=== PATIENT | female | born 1940 | race African-American/Black ===

== ENCOUNTER 2019-10-01 14:18 | Outpatient (CLI) | payer MEDICARE, MEDICAID | END 2019-10-01 14:19 | disposition home or self-care (01) | LOC: DTY/OP 14:18 | PROVIDERS: ATTEND Physician Assistant | DX: I25.10 Atherosclerotic heart disease of native coronary artery without angina pectoris (principal); E11.59 Type 2 diabetes mellitus with other circulatory complications; E66.01 Morbid (severe) obesity due to excess calories | CPT/HCPCS: 97802 ==

== ENCOUNTER 2019-11-13 12:55 | Outpatient (CLI) | payer MEDICARE, MEDICAID ==
--- NOTE | 2019-11-13 13:14 | RAD ---
EXAM: Chest PA and lateral: HISTORY: Flavum. Wheezing. COMPARISON: 07/19/2019 FINDINGS: Heart: Normal cardiac silhouette Aorta: Unremarkable Pulmonary vessels: Normal Costophrenic angles: Costophrenic angles are clear. Lungs: Chronic lung parenchymal changes. No consolidation or mass. Pneumothorax: No pneumothorax Osseous structures: No osseous abnormalities IMPRESSION: Chronic lung parenchymal changes.
== END 2019-11-13 12:56 | disposition home or self-care (01) ==
LOC: BICRAD 12:55
PROVIDERS: ATTEND Internal Medicine Critical Care Medicine
DX: R06.00 Dyspnea, unspecified (principal)
CPT/HCPCS: 71046

== ENCOUNTER 2020-02-22 08:08 | Outpatient (CLI) | payer MEDICARE, MEDICAID ==
--- NOTE | 2020-02-22 10:57 | CT ---
Exam: Abdomen CT without contrast Pelvic CT without contrast HISTORY: Abnormal exam. Possible right upper quadrant mass. CORRELATION: Small bowel series 02/04/2020. FINDINGS: Abdomen CT: Minimal dependent atelectatic changes. Normal heart size. There are coronary calcifications. Visualized aorta has a normal caliber. There is atherosclerosis. No periaortic fat stranding. Portal vein is patent. Gallbladder: 2.4 cm gallstone. No evidence of cholecystitis. Liver: Appropriate enhancement. Spleen: Appropriate enhancement. Adrenal glands: Appropriate enhancement. Pancreas: Appropriate assessment. Kidneys: Bilaterally no obstructive uropathy. Subcentimeter hypodensities in the left renal cortex ar e too small to characterize but is statistically favored to be cysts. No gastrohepatic, retrocrural or periportal lymphadenopathy. No mesenteric mass, lymphadenopathy, free air or free fluid. Gastric mucosa, duodenum and multiple normal caliber small bowel loops. Normal ileocecal junction. No rmal caliber appendix. Scattered diverticula. No diverticulitis. No evidence of colon obstruction. Pelvic CT: No mass, lymphadenopathy, free air or free fluid. Urinary bladder has a normal mucosal appearance. Pr esacral fat is preserved. Post hysterectomy changes. No lytic or blastic lesions in the osseous structures. IMPRESSION: 1. No acute abnormality in the abdomen and pelvis. 2. No evidence of bowel obstruction. Normal caliber appendix. 3. Diverticulosis, without evidence of diverticulitis. 4. Gallstone in the gallbladder, without evidence of cholecystitis. Transcribed Date/Time: 02/22/2020 11:32 AM
== END 2020-02-22 08:09 | disposition home or self-care (01) ==
LOC: SCSCT 08:08
PROVIDERS: ATTEND Physician Assistant
DX: R19.01 Right upper quadrant abdominal swelling, mass and lump (principal); K57.90 Diverticulosis of intestine, part unspecified, without perforation or abscess without bleeding; K80.20 Calculus of gallbladder without cholecystitis without obstruction
CPT/HCPCS: 74177; 82565

== ENCOUNTER 2020-03-12 06:45 | Outpatient (CLI) | payer MEDICARE, MEDICAID, OTHER ==
[2020-03-12 15:56] LABS: SARS-CoV-2 MS2 Positive; SARS-CoV-2 N Gene Negative; SARS-CoV-2 S Gene Negative; SARS-CoV-2 by NAA Not Detected (NotDetected); SARS-CoV-2 orf1ab Negative
== END 2020-03-12 06:46 | disposition home or self-care (01) ==
LOC: LABBT 06:45
PROVIDERS: ATTEND Physician Assistant Medical
DX: R10.9 Unspecified abdominal pain (principal); R13.10 Dysphagia, unspecified; R09.89 Other specified symptoms and signs involving the circulatory and respiratory systems; Z20.828 Contact with and (suspected) exposure to other viral communicable diseases
CPT/HCPCS: 87635; U0003

== ENCOUNTER → 2020-03-17 | Day surgery (SDC) | payer MEDICARE, MEDICAID | LOC: ENDO/OP 08:47 | PROVIDERS: ATTEND Physician Assistant Medical | DX: R13.10 Dysphagia, unspecified (principal); Z88.8 Allergy status to other drugs, medicaments and biological substances | CPT/HCPCS: 91010 ==

== ENCOUNTER 2020-11-10 12:07 | Outpatient (CLI) | payer MEDICARE, MEDICAID | END 2020-11-10 12:08 | disposition home or self-care (01) | LOC: BICRAD 12:07 | PROVIDERS: ATTEND Internal Medicine Pulmonary Disease | DX: R06.00 Dyspnea, unspecified (principal) | CPT/HCPCS: 71046 ==

== ENCOUNTER 2021-03-04 19:00 | Outpatient (CLI) | payer MEDICARE, MEDICAID | END 2021-03-04 19:01 | disposition home or self-care (01) | LOC: SLEEPLAB 19:00 | PROVIDERS: ATTEND Internal Medicine Critical Care Medicine | DX: G47.33 Obstructive sleep apnea (adult) (pediatric) (principal); R53.83 Other fatigue; E66.9 Obesity, unspecified; J44.9 Chronic obstructive pulmonary disease, unspecified; I63.9 Cerebral infarction, unspecified; R06.3 Periodic breathing; G47.31 Primary central sleep apnea | CPT/HCPCS: 95811 ==

== ENCOUNTER 2021-04-15 19:00 | Outpatient (CLI) | payer MEDICARE, MEDICAID | END 2021-04-15 19:01 | disposition home or self-care (01) | LOC: SLEEPLAB 19:00 | PROVIDERS: ATTEND Internal Medicine Pulmonary Disease | DX: G47.33 Obstructive sleep apnea (adult) (pediatric) (principal); R53.83 Other fatigue; J44.9 Chronic obstructive pulmonary disease, unspecified; I63.9 Cerebral infarction, unspecified; G47.10 Hypersomnia, unspecified; I48.91 Unspecified atrial fibrillation; E66.9 Obesity, unspecified; Z68.36 Body mass index [BMI] 36.0-36.9, adult | CPT/HCPCS: 95811 ==

== ENCOUNTER 2021-12-02 09:00 | Outpatient (CLI) | payer OTHER, MEDICAID | END 2021-12-02 09:01 | disposition home or self-care (01) | LOC: SCSMRI 09:00 | PROVIDERS: ATTEND Physician Assistant | DX: R22.42 Localized swelling, mass and lump, left lower limb (principal) ==

== ENCOUNTER 2022-09-15 09:30 | Outpatient (CLI) | payer OTHER ==
[2022-09-15 11:23] LABS: #Eosinphils 0.1 10x3/uL (0.0-0.5); #Monocytes 0.9 10x3/uL (0.0-1.1); #Neutrophils 4.9 10x3/uL (1.5-8.4); %Basophils 0.6 % (0.0-2.0); %Eosinophils 0.7 % (0.0-6.0); %Lymphocytes 17.6 % (18.0-47.0); %Monocytes 12.5 % (0.0-10.0); Hemoglobin 13.2 g/dL (12.0-15.5); Mean Corpuscular HGB CONC 33.1 g/dL (32.0-36.0); Mean Corpuscular Hemoglobin 28.5 pg (27.0-33.0); Mean Corpuscular Volume 86.2 fl (81.6-98.3); Mean Platelet Volume 11.8 fl (7.4-10.4); Platelet Count 188 10x3/uL (150-450); RBC Distribution Width 13.1 % (11.5-14.5); Red Blood Cell (RBC) Count 4.63 10x6/uL (3.90-5.03); White Blood Cell (WBC) Count 7.1 10x3/uL (3.5-10.5)
[2022-09-15 11:43] LABS: Anion Gap 16 mmol/L (10-20); BUN (Urea Nitrogen) 13 mg/dL (9.8-20.1); Calc. Creatinine Clearance 0 mL/min (70-130); Calcium 9.2 mg/dL (7.8-10.44); Carbon Dioxide 24 mmol/L (23-31); Chloride 103 mmol/L (98-107); Estimated GFR 78; Glucose 140 mg/dL (83-110); Sodium 139 mmol/L (136-145)
== END 2022-09-15 09:31 | disposition home or self-care (01) ==
LOC: LABBT 09:30
PROVIDERS: ATTEND Orthopaedic Surgery Hand Surgery
DX: Z01.812 Encounter for preprocedural laboratory examination (principal); G56.02 Carpal tunnel syndrome, left upper limb
CPT/HCPCS: 80048; 85025

== ENCOUNTER 2024-04-10 12:59 | Outpatient (CLI) | payer OTHER, MEDICAID | END 2024-04-10 13:00 | disposition home or self-care (01) | LOC: SCSRAD 12:59 | PROVIDERS: ATTEND Physician Assistant | DX: R22.42 Localized swelling, mass and lump, left lower limb (principal) ==

== ENCOUNTER 2024-12-28 23:19 | Inpatient (IN) | payer OTHER, MEDICAID ==
[2024-12-29] MEDS ORDERED: Albuterol 2.5 MG (3 mL) NEB ONE (00:02)
[2024-12-29 00:22] LABS: #Basophils 0.05 10x3/uL (0.0-0.2); #Eosinophils 0.04 10x3/uL (0.0-0.7); #Monocytes 0.70 10x3/uL (0.11-0.59); #Neutrophils 5.51 10x3/uL (1.40-6.50); %Basophils 0.7 % (0.0-1.0); %Eosinophils 0.5 % (0.0-10.0); %Lymphocytes 16.0 % (21.0-51.0); %Monocytes 9.3 % (0.0-10.0); %Neutrophils 73.1 % (42.0-75.0); Hematocrit 38.6 % (36.0-47.0); Hemoglobin 11.9 g/dL (12.0-16.0); Mean Corpuscular Hemoglobin 25.7 pg (27.0-31.0); Mean Corpuscular Volume 83.4 fL (78.0-98.0); Platelet Count 146 10x3/uL (130-400); Red Blood Cell (RBC) Count 4.63 mill/uL (4.20-5.40); White Blood Cell (WBC) Count 7.54 10x3/uL (4.8-10.8)
[2024-12-29 01:29] LABS: ALT (SGPT) 76 U/L (Less than 34); AST (SGOT) 130 U/L (11-34); Albumin 3.1 g/dL (3.1-4.5); Alkaline Phosphatase 132 U/L (40-110); Anion Gap 20 mmol/L (10-20); BUN (Urea Nitrogen) 21 mg/dL (9.8-20.1); Bilirubin, Total 0.8 mg/dL (0.3-1.2); Calc. Creatinine Clearance 0 mL/min (70-130); Calcium 8.8 mg/dL (7.8-10.44); Carbon Dioxide 20 mmol/L (23-31); Chloride 102 mmol/L (98-107); Globulin 4.5 g/dL (2.4-3.5); Glucose 222 mg/dL (83-110); Potassium 3.8 mmol/L (3.5-5.1); Sodium 138 mmol/L (136-145)
[2024-12-29] MEDS ORDERED: Furosemide 40 MG (4 mL) VIAL ONE (01:31)
[2024-12-29] MEDS ORDERED: Ondansetron PF 4 MG/2 ML Vial IVP PRN (02:14)
[2024-12-29] MEDS ORDERED: Acetaminophen 325 MG TAB PO PRN (02:14)
[2024-12-29] MEDS ORDERED: Glucagon 1 MG/ML KIT IM PRN (02:34)
[2024-12-29] MEDS ORDERED: Dextrose 50% Abboject 50 ML SYRINGE SLOW IVP PRN (02:34)
[2024-12-29] MEDS ORDERED: cefTRIAXone (ROCEPHIN) 1 GM VIAL ONE (02:55)
[2024-12-29] MEDS: cefTRIAXone\\ROCEPHIN 1 GM in Sodium Chloride 0.9% 100 ML IVPB SCH (03:09)
[2024-12-29] MEDS ORDERED: Azithromycin 500 MG VIAL ONE (03:56)
[2024-12-29 04:00] LABS: #Basophils Less than 0.03 10x3/uL (0.0-0.2); #Eosinophils Less than 0.03 10x3/uL (0.0-0.7); #Monocytes 0.15 10x3/uL (0.11-0.59); #Neutrophils 5.56 10x3/uL (1.40-6.50); %Basophils 0.2 % (0.0-1.0); %Eosinophils 0.0 % (0.0-10.0); %Lymphocytes 9.9 % (21.0-51.0); %Monocytes 2.4 % (0.0-10.0); %Neutrophils 87.0 % (42.0-75.0); Hematocrit 35.6 % (36.0-47.0); Hemoglobin 11.2 g/dL (12.0-16.0); Mean Corpuscular Hemoglobin 25.6 pg (27.0-31.0); Mean Corpuscular Volume 81.3 fL (78.0-98.0); Platelet Count 150 10x3/uL (130-400); Red Blood Cell (RBC) Count 4.38 mill/uL (4.20-5.40); White Blood Cell (WBC) Count 6.38 10x3/uL (4.8-10.8)
[2024-12-29] MEDS: Azithromycin 500 MG in Sodium Chloride 0.9% 250 ML 250 ML IVPB SCH (04:01)
[2024-12-29 04:13] LABS: ALT (SGPT) 72 U/L (Less than 34); AST (SGOT) 93 U/L (11-34); Albumin 3.0 g/dL (3.1-4.5); Alkaline Phosphatase 127 U/L (40-110); Anion Gap 17 mmol/L (10-20); BUN (Urea Nitrogen) 20 mg/dL (9.8-20.1); Bilirubin, Total 0.8 mg/dL (0.3-1.2); Calc. Creatinine Clearance 39 mL/min (70-130); Calcium 8.5 mg/dL (7.8-10.44); Carbon Dioxide 24 mmol/L (23-31); Chloride 102 mmol/L (98-107); Globulin 4.3 g/dL (2.4-3.5); Glucose 204 mg/dL (83-110); Magnesium 1.9 mg/dL (1.6-2.6); Potassium 3.4 mmol/L (3.5-5.1); Sodium 140 mmol/L (136-145)
[2024-12-29] MEDS ORDERED: Etomidate 40 MG (20 mL) VIAL ONE (04:42)
[2024-12-29] MEDS ORDERED: Rocuronium Bromide 10 MG/ML (10ML VIAL) ONE (04:42)
[2024-12-29] MEDS ORDERED: NOREPINEPHRINE 8 MG/250 ML-D5W 250 ML ONE (04:43)
[2024-12-29 04:58] LABS: Analyzer IN Cardio ER; Base Excess (BEa) -16.7 mEq/L (-2.0 to +3.0); CO2 Tension 31.7 mmHg (35.0-45.0); Hematocrit-ABG 15 % (36.0-47.0)
[2024-12-29 04:59] LABS: pH, Arterial 7.145 (7.35-7.45)
[2024-12-29] MEDS ORDERED: Vasopressin In 0.9 % NaCl 100 ML ONE (04:59)
[2024-12-29 05:00] LABS: Actual Bicarbonate (HCO3a) 10.7 mEq/L (22-28); O2 Tension (PaO2), arterial 22.7 mmHg (> 60.0)
[2024-12-29 05:01] LABS: Calcium, Ionized (arterial) 0.76 mmol/L (1.12-1.30); Hemoglobin (Hb) 5.2 g/dL (12.0-16.0); Potassium - ABG Lab 2.10 mmol/L (3.70-5.30)
[2024-12-29 06:58] LABS: Base Excess (BEa) -11.4 mEq/L (-2.0 to +3.0); Calcium, Ionized (arterial) 1.07 mmol/L (1.12-1.30); Hematocrit-ABG 40 % (36.0-47.0); Hemoglobin (Hb) 13.5 g/dL (12.0-16.0); O2 Tension (PaO2), arterial 531.5 mmHg (> 60.0); Potassium - ABG Lab 4.42 mmol/L (3.70-5.30); pH, Arterial 7.357 (7.35-7.45)
[2024-12-29 07:00] LABS: Actual Bicarbonate (HCO3a) 12.0 mEq/L (22-28); CO2 Tension 21.8 mmHg (35.0-45.0)
[2024-12-29 07:01] LABS: ALV-art Gradient 154.250 mmHg (0-20); Puncture Site Right Radial artery
[2024-12-29] MEDS: Furosemide 40 MG (4 mL) VIAL SLOW IVP SCH (07:54)
[2024-12-29] MEDS ORDERED: Electrolyte Replacement Protocol 1 EACH FS SCH (08:45)
[2024-12-29] MEDS: Pantoprazole 40 MG DR.TAB PO SCH (10:47)
[2024-12-29] MEDS: Magnesium 2 GM/50 ML(in water) 2 GM in Premix 1 BAG IVPB SCH (10:47)
[2024-12-29 12:26] LABS: Albumin 3.0 g/dL (3.1-4.5); Anion Gap 33 mmol/L (10-20); BUN (Urea Nitrogen) 23 mg/dL (9.8-20.1); BUN/Creatinine Ratio 11.44; Calc. Creatinine Clearance 23 mL/min (70-130); Calcium 8.9 mg/dL (7.8-10.44); Carbon Dioxide 12 mmol/L (23-31); Chloride 101 mmol/L (98-107); Glucose 271 mg/dL (83-110); Potassium 4.7 mmol/L (3.5-5.1); Sodium 141 mmol/L (136-145)
[2024-12-29] MEDS: PNEUMOC 20-VAL CONJ-DIP CRM/PF 0.5 ML SYRINGE IM ONE (14:13)
[2024-12-29] MEDS ORDERED: Acetaminophen 325 MG TAB PER TUBE PRN (19:45)
[2024-12-29] MEDS: Lansoprazole 30 MG/10 ML UDCUP PER TUBE SCH (21:04)
[2024-12-30 04:35] LABS: #Basophils Less than 0.03 10x3/uL (0.0-0.2); #Eosinophils Less than 0.03 10x3/uL (0.0-0.7); #Monocytes 0.65 10x3/uL (0.11-0.59); #Neutrophils 9.27 10x3/uL (1.40-6.50); %Basophils 0.2 % (0.0-1.0); %Eosinophils 0.0 % (0.0-10.0); %Lymphocytes 13.2 % (21.0-51.0); %Monocytes 5.6 % (0.0-10.0); %Neutrophils 80.1 % (42.0-75.0); Hematocrit 37.9 % (36.0-47.0); Hemoglobin 11.9 g/dL (12.0-16.0); Mean Corpuscular Hemoglobin 25.8 pg (27.0-31.0); Mean Corpuscular Volume 82.2 fL (78.0-98.0); Platelet Count 144 10x3/uL (130-400); Red Blood Cell (RBC) Count 4.61 mill/uL (4.20-5.40); White Blood Cell (WBC) Count 11.57 10x3/uL (4.8-10.8)
[2024-12-30 04:37] LABS: Anion Gap 27 mmol/L (10-20); BUN (Urea Nitrogen) 33 mg/dL (9.8-20.1); Calc. Creatinine Clearance 20 mL/min (70-130); Calcium 8.2 mg/dL (7.8-10.44); Carbon Dioxide 17 mmol/L (23-31); Chloride 105 mmol/L (98-107); Glucose 221 mg/dL (83-110); Potassium 4.4 mmol/L (3.5-5.1); Sodium 145 mmol/L (136-145)
[2024-12-30 05:34] VITALS: BMI 24.3
[2024-12-31 04:42] LABS: Hematocrit 37.9 % (36.0-47.0); Hemoglobin 12.3 g/dL (12.0-16.0); Mean Corpuscular Hemoglobin 25.9 pg (27.0-31.0); Mean Corpuscular Volume 80.0 fL (78.0-98.0); Platelet Count 122 10x3/uL (130-400); Red Blood Cell (RBC) Count 4.74 mill/uL (4.20-5.40); White Blood Cell (WBC) Count 15.32 10x3/uL (4.8-10.8)
[2024-12-31 04:59] LABS: Anion Gap 16 mmol/L (10-20); BUN (Urea Nitrogen) 45 mg/dL (9.8-20.1); Calc. Creatinine Clearance 26 mL/min (70-130); Calcium 7.5 mg/dL (7.8-10.44); Carbon Dioxide 23 mmol/L (23-31); Chloride 108 mmol/L (98-107); Glucose 150 mg/dL (83-110); Potassium 3.4 mmol/L (3.5-5.1); Sodium 144 mmol/L (136-145)
[2024-12-31 05:09] LABS: Anisocytosis SLIGHT = 6-15 cells HPF (0-5); Nucleated RBC (Manual Ct) 3 % (0); Platelet Adequacy Comment Platelets Decreased; Poikilocytosis SLIGHT = 6-15 cells HPF (0-5); Polychromasia SLIGHT = 2-3 cells HPF (0-2); Target Cells SLIGHT = 2-5 cells HPF (0-1)
[2024-12-31] MEDS: Potassium Bicarbonate/Cit Ac 20 MEQ TAB PER TUBE SCH (08:58)
[2024-12-31] MEDS: LevoFLOXacin 750 mg/D5W 750 MG in Premix 1 BAG IVPB SCH (10:04)
[2024-12-31] MEDS ORDERED: Sodium Bicarb 50 MEQ/50 ML Abboject 8.4% SYRINGE ONE (11:51)
[2024-12-31] MEDS ORDERED: EPINEPHrine 1 MG/10 ML Abboject SYRINGE ONE (11:51)
[2024-12-31] MEDS ORDERED: Calcium Chloride 1 GM/10 ML Abboject SYRINGE ONE (11:51)
[2024-12-31] MEDS ORDERED: Fentanyl BOLUS 100 ML IVPB PRN (12:15)
[2024-12-31] MEDS ORDERED: Propofol BOLUS 1,000 MG/100 ML VIAL IV PRN (12:15)
[2024-12-31 12:46] LABS: ALT (SGPT) 1276 U/L (Less than 34); AST (SGOT) 1899 U/L (11-34); Albumin 1.7 g/dL (3.1-4.5); Alkaline Phosphatase 196 U/L (40-110); Anion Gap 25 mmol/L (10-20); BUN (Urea Nitrogen) 38 mg/dL (9.8-20.1); Bilirubin, Total 0.9 mg/dL (0.3-1.2); Calc. Creatinine Clearance 29 mL/min (70-130); Calcium 7.2 mg/dL (7.8-10.44); Carbon Dioxide 14 mmol/L (23-31); Chloride 115 mmol/L (98-107); Globulin 2.7 g/dL (2.4-3.5); Glucose 119 mg/dL (83-110); Potassium 3.7 mmol/L (3.5-5.1); Sodium 150 mmol/L (136-145)
[2024-12-31 12:54] LABS: Hematocrit 35.6 % (36.0-47.0); Hemoglobin 10.7 g/dL (12.0-16.0); Mean Corpuscular Hemoglobin 26.0 pg (27.0-31.0); Mean Corpuscular Volume 86.4 fL (78.0-98.0); Platelet Count 87 10x3/uL (130-400); Red Blood Cell (RBC) Count 4.12 mill/uL (4.20-5.40); White Blood Cell (WBC) Count 17.72 10x3/uL (4.8-10.8)
[2024-12-31 13:23] LABS: Anisocytosis SLIGHT = 6-15 cells HPF (0-5); Burr Cells MODERATE= 6-15 cells HPF (0-1); Macrocytosis SLIGHT = 6-15 cells HPF (0-5); Nucleated RBC (Manual Ct) 6 % (0); Ovalocytes SLIGHT = 2-5 cells HPF (0-1); Platelet Adequacy Comment Platelets Decreased; Poikilocytosis MARKED = >30 cells HPF (0-5); Polychromasia SLIGHT = 2-3 cells HPF (0-2); Smudge Cells 21.2 %
[2024-12-31] MEDS: Ventilator Sedation Protocol 1 EACH FS ONE (13:42)
[2024-12-31] MEDS: DC Sedation Protocol FS ONE (13:42)
[2025-01-01 04:24] LABS: ALT (SGPT) 1681 U/L (Less than 34); AST (SGOT) 2036 U/L (11-34); Albumin 2.4 g/dL (3.1-4.5); Alkaline Phosphatase 271 U/L (40-110); Anion Gap 16 mmol/L (10-20); BUN (Urea Nitrogen) 47 mg/dL (9.8-20.1); Bilirubin, Total 1.7 mg/dL (0.3-1.2); Calc. Creatinine Clearance 27 mL/min (70-130); Calcium 7.9 mg/dL (7.8-10.44); Carbon Dioxide 22 mmol/L (23-31); Chloride 108 mmol/L (98-107); Globulin 3.7 g/dL (2.4-3.5); Glucose 288 mg/dL (83-110); Magnesium 2.2 mg/dL (1.6-2.6); Potassium 3.8 mmol/L (3.5-5.1); Sodium 142 mmol/L (136-145)
[2025-01-01 04:47] LABS: #Basophils Less than 0.03 10x3/uL (0.0-0.2); #Eosinophils Less than 0.03 10x3/uL (0.0-0.7); #Monocytes 1.07 10x3/uL (0.11-0.59); #Neutrophils 11.49 10x3/uL (1.40-6.50); %Basophils 0.1 % (0.0-1.0); %Eosinophils 0.0 % (0.0-10.0); %Lymphocytes 9.5 % (21.0-51.0); %Monocytes 7.6 % (0.0-10.0); %Neutrophils 81.9 % (42.0-75.0); Hematocrit 36.3 % (36.0-47.0); Hemoglobin 11.8 g/dL (12.0-16.0); Mean Corpuscular Hemoglobin 26.0 pg (27.0-31.0); Mean Corpuscular Volume 80.0 fL (78.0-98.0); Platelet Count 105 10x3/uL (130-400); Red Blood Cell (RBC) Count 4.54 mill/uL (4.20-5.40); White Blood Cell (WBC) Count 14.04 10x3/uL (4.8-10.8)
[2025-01-01 07:46] LABS: Actual Bicarbonate (HCO3a) 19.6 mEq/L (22-28); Base Excess (BEa) -2.8 mEq/L (-2.0 to +3.0); CO2 Tension 28.0 mmHg (35.0-45.0); Calcium, Ionized (arterial) 1.12 mmol/L (1.12-1.30); Hematocrit-ABG 39 % (36.0-47.0); Hemoglobin (Hb) 13.1 g/dL (12.0-16.0); O2 Tension (PaO2), arterial 116.6 mmHg (> 60.0); Potassium - ABG Lab 3.28 mmol/L (3.70-5.30); pH, Arterial 7.464 (7.35-7.45)
[2025-01-01 07:47] LABS: ALV-art Gradient 133.600 mmHg (0-20); Puncture Site Right Radial artery
[2025-01-01] MEDS: Furosemide 40 MG (4 mL) VIAL SLOW IVP SCH (15:27)
[2025-01-02 04:40] LABS: Hematocrit 34.5 % (36.0-47.0); Hemoglobin 11.2 g/dL (12.0-16.0); Mean Corpuscular Hemoglobin 25.6 pg (27.0-31.0); Mean Corpuscular Volume 78.9 fL (78.0-98.0); Platelet Count 84 10x3/uL (130-400); Red Blood Cell (RBC) Count 4.37 mill/uL (4.20-5.40); White Blood Cell (WBC) Count 10.24 10x3/uL (4.8-10.8)
[2025-01-02 04:50] LABS: ALT (SGPT) 1299 U/L (Less than 34); AST (SGOT) 1032 U/L (11-34); Albumin 2.1 g/dL (3.1-4.5); Alkaline Phosphatase 220 U/L (40-110); Anion Gap 15 mmol/L (10-20); BUN (Urea Nitrogen) 33 mg/dL (9.8-20.1); Bilirubin, Total 1.9 mg/dL (0.3-1.2); Calc. Creatinine Clearance 38 mL/min (70-130); Calcium 7.6 mg/dL (7.8-10.44); Carbon Dioxide 24 mmol/L (23-31); Chloride 103 mmol/L (98-107); Globulin 3.5 g/dL (2.4-3.5); Glucose 262 mg/dL (83-110); Magnesium 1.8 mg/dL (1.6-2.6); Potassium 2.8 mmol/L (3.5-5.1); Sodium 139 mmol/L (136-145)
[2025-01-02] MEDS: Furosemide 40 MG (4 mL) VIAL SLOW IVP SCH (05:06)
[2025-01-02 05:24] LABS: Anisocytosis SLIGHT = 6-15 cells HPF (0-5); Microcytosis SLIGHT = 6-15 cells HPF (0-5); Nucleated RBC (Manual Ct) 8 % (0); Platelet Adequacy Comment Platelets Decreased; Polychromasia SLIGHT = 2-3 cells HPF (0-2)
[2025-01-02] MEDS: Magnesium 2 GM/50 ML(in water) 2 GM in Premix 1 BAG IVPB SCH (05:44)
[2025-01-02] MEDS: Potassium Bicarbonate/Cit Ac 20 MEQ TAB PER TUBE SCH ×2 (05:44→20:33)
[2025-01-02 08:02] LABS: Actual Bicarbonate (HCO3a) 25.0 mEq/L (22-28); Base Excess (BEa) 3.3 mEq/L (-2.0 to +3.0); CO2 Tension 29.4 mmHg (35.0-45.0); Calcium, Ionized (arterial) 1.10 mmol/L (1.12-1.30); Hematocrit-ABG 38 % (36.0-47.0); Hemoglobin (Hb) 12.8 g/dL (12.0-16.0); O2 Tension (PaO2), arterial 85.2 mmHg (> 60.0); Potassium - ABG Lab 3.33 mmol/L (3.70-5.30); pH, Arterial 7.547 (7.35-7.45)
[2025-01-02 08:05] LABS: ALV-art Gradient 163.250 mmHg (0-20); Puncture Site Right Radial artery
[2025-01-02] MEDS: LevoFLOXacin 500 mg/D5W 500 MG in Premix 1 BAG IVPB SCH (10:34)
[2025-01-02 19:48] LABS: ALT (SGPT) 1133 U/L (Less than 34); AST (SGOT) 561 U/L (11-34); Albumin 2.3 g/dL (3.1-4.5); Alkaline Phosphatase 233 U/L (40-110); Anion Gap 16 mmol/L (10-20); BUN (Urea Nitrogen) 24 mg/dL (9.8-20.1); Bilirubin, Total 2.5 mg/dL (0.3-1.2); Calc. Creatinine Clearance 46 mL/min (70-130); Calcium 8.1 mg/dL (7.8-10.44); Carbon Dioxide 31 mmol/L (23-31); Chloride 100 mmol/L (98-107); Globulin 3.8 g/dL (2.4-3.5); Glucose 139 mg/dL (83-110); Magnesium 2.0 mg/dL (1.6-2.6); Potassium 2.9 mmol/L (3.5-5.1); Sodium 144 mmol/L (136-145)
[2025-01-03 01:04] LABS: Potassium 3.4 mmol/L (3.5-5.1)
[2025-01-03 05:14] LABS: Hematocrit 33.4 % (36.0-47.0); Hemoglobin 11.2 g/dL (12.0-16.0); Mean Corpuscular Hemoglobin 26.0 pg (27.0-31.0); Mean Corpuscular Volume 77.7 fL (78.0-98.0); Platelet Count 90 10x3/uL (130-400); Red Blood Cell (RBC) Count 4.30 mill/uL (4.20-5.40); White Blood Cell (WBC) Count 10.95 10x3/uL (4.8-10.8)
[2025-01-03 05:19] LABS: Anion Gap 17 mmol/L (10-20); BUN (Urea Nitrogen) 22 mg/dL (9.8-20.1); Calc. Creatinine Clearance 49 mL/min (70-130); Calcium 7.9 mg/dL (7.8-10.44); Carbon Dioxide 29 mmol/L (23-31); Chloride 102 mmol/L (98-107); Glucose 148 mg/dL (83-110); Potassium 3.5 mmol/L (3.5-5.1); Sodium 144 mmol/L (136-145)
[2025-01-03 05:47] LABS: Nucleated RBC (Manual Ct) 3 % (0); Platelet Adequacy Comment Platelets Decreased; Poikilocytosis SLIGHT = 6-15 cells HPF (0-5); Polychromasia SLIGHT = 2-3 cells HPF (0-2); Smudge Cells 16.0 %; Target Cells SLIGHT = 2-5 cells HPF (0-1)
[2025-01-03] MEDS: Potassium Bicarbonate/Cit Ac 20 MEQ TAB PER TUBE SCH ×2 (09:44→16:24)
[2025-01-03 13:23] LABS: Potassium 3.4 mmol/L (3.5-5.1)
[2025-01-03 18:16] VITALS: BMI 27.1
[2025-01-04 20:58] VITALS: TEMP 97.5
[2025-01-05] MEDS: Glycopyrrolate 0.4 MG/ 2 ML VIAL SLOW IVP PRN (03:42)
[2025-01-05 09:06] VITALS: BP 134/79
== END 2025-01-05 15:27 | disposition expired | DRG 207 ==
LOC: ERS 23:19 → ERHOLD 12-29 02:09 → CCU 12-29 06:30 → OBSVTOIN 12-29 10:51 → MSONC 01-04 18:51
PROVIDERS: ADMIT Internal Medicine; ATTEND Internal Medicine
PROC: 5A1955Z Respiratory Ventilation, Greater than 96 Consecutive Hours (ICD-10-PCS; principal; 2024-12-29)
PROC: 4A133R1 Monitoring of Arterial Saturation, Peripheral, Percutaneous Approach (ICD-10-PCS; 2024-12-29)
PROC: 3E03329 Introduction of Other Anti-infective into Peripheral Vein, Percutaneous Approach (ICD-10-PCS; 2024-12-29)
PROC: 3E033XZ Introduction of Vasopressor into Peripheral Vein, Percutaneous Approach (ICD-10-PCS; 2024-12-29)
PROC: 0T9B70Z Drainage of Bladder with Drainage Device, Via Natural or Artificial Opening (ICD-10-PCS; 2024-12-29)
PROC: 0BH17EZ Insertion of Endotracheal Airway into Trachea, Via Natural or Artificial Opening (ICD-10-PCS; 2024-12-29)
PROC: 06HY33Z Insertion of Infusion Device into Lower Vein, Percutaneous Approach (ICD-10-PCS; 2024-12-29)
PROC: 0D9670Z Drainage of Stomach with Drainage Device, Via Natural or Artificial Opening (ICD-10-PCS; 2024-12-29)
PROC: 3E04329 Introduction of Other Anti-infective into Central Vein, Percutaneous Approach (ICD-10-PCS; 2024-12-29)
PROC: 3E043XZ Introduction of Vasopressor into Central Vein, Percutaneous Approach (ICD-10-PCS; 2024-12-29)
PROC: 3E0234Z Introduction of Serum, Toxoid and Vaccine into Muscle, Percutaneous Approach (ICD-10-PCS; 2024-12-29)
PROC: 5A2204Z Restoration of Cardiac Rhythm, Single (ICD-10-PCS; 2025-01-02)
DX: J96.21 Acute and chronic respiratory failure with hypoxia (principal); G93.41 Metabolic encephalopathy; K72.00 Acute and subacute hepatic failure without coma; I50.43 Acute on chronic combined systolic (congestive) and diastolic (congestive) heart failure; I13.0 Hypertensive heart and chronic kidney disease with heart failure and stage 1 through stage 4 chronic kidney disease, or unspecified chronic kidney disease; N17.9 Acute kidney failure, unspecified; E87.3 Alkalosis; E87.20 Acidosis, unspecified; E87.0 Hyperosmolality and hypernatremia; M96.A2 Fracture of one rib associated with chest compression and cardiopulmonary resuscitation; I48.20 Chronic atrial fibrillation, unspecified; I47.20 Ventricular tachycardia, unspecified; Z66 Do not resuscitate; Z51.5 Encounter for palliative care; I46.9 Cardiac arrest, cause unspecified; H40.9 Unspecified glaucoma; E03.9 Hypothyroidism, unspecified; J44.9 Chronic obstructive pulmonary disease, unspecified; I25.10 Atherosclerotic heart disease of native coronary artery without angina pectoris; N18.30 Chronic kidney disease, stage 3 unspecified; I49.01 Ventricular fibrillation; I25.5 Ischemic cardiomyopathy; E11.22 Type 2 diabetes mellitus with diabetic chronic kidney disease; D72.829 Elevated white blood cell count, unspecified; I08.1 Rheumatic disorders of both mitral and tricuspid valves; R45.1 Restlessness and agitation; E87.6 Hypokalemia; Z98.890 Other specified postprocedural states; Z23 Encounter for immunization; Z86.73 Personal history of transient ischemic attack (TIA), and cerebral infarction without residual deficits; Z95.5 Presence of coronary angioplasty implant and graft; Z90.710 Acquired absence of both cervix and uterus; Z79.82 Long term (current) use of aspirin; Z79.899 Other long term (current) drug therapy; Z79.890 Hormone replacement therapy; Z79.01 Long term (current) use of anticoagulants; Z88.8 Allergy status to other drugs, medicaments and biological substances; Z86.74 Personal history of sudden cardiac arrest; I25.2 Old myocardial infarction; Z87.440 Personal history of urinary (tract) infections
CPT/HCPCS: 36415; 36416; 36600; 51702; 70450; 71045; 71250; 80048; 80053; 82805; 83605; 83735; 83880; 84132; 84145; 84443; 84484; 85025; 87428; 93005; 94002; 94003; 94760; 96365; 96375; 96376; G0378; J0165; J0282; J0456; J0696; J1815; J1940; J1956; J2060; J2250; J2270; J2919; J3475; J7030; J7050; J7070; J7611; J7620